=== PATIENT | male | born 1985 | race Caucasian/White ===

== ENCOUNTER 2016-10-02 11:36 | Emergency (ER) | payer SELFPAY ==
[~2016-10-02 11:36] MED LIST: NO MEDICATIONS; VICODIN 5/500 T1 TAB PO
== END 2016-10-02 12:09 | disposition left against medical advice (07) ==
LOC: SED 11:36
DX: Z53.21 Procedure and treatment not carried out due to patient leaving prior to being seen by health care provider (principal)

== ENCOUNTER 2016-10-05 01:41 | Emergency (ER) | payer OTHER ==
--- NOTE | ~2016-10-05 | CR281 ---
[facility]. [facility] A Service of [facility] & [facility] RADIOLOGY TEXT RESULTS PATIENT: TRI AMEZQUITA LOCATION: SED : [birth year] UNIT #: [id number] AGE: [address]: Norman Valencia MD SEX: M ORDER DR: [id number] [place] [address] [id number] E MR#: [id number] Acc #: [id number] NAME: TRI AMEZQUITA : 1985 SEX: M STUDY DATE/TIME: 10/05/2016 2:19 UNIT: SED ROOM: STUDY DESCRIPTION: CR Wrist Min 3 View Lt Attending Physician: Norman Valencia M.D. Ordering Physician: Norman Valencia M.D. Primary Care Physician: Primary Care Physician No MEDICAL IMAGING REPORT This report is preliminary unless electronic signature is present. EXAM Left wrist series INDICATION Left wrist pain after an injury 1 week ago. PROCEDURE 3 views of the left wrist. COMPARISON None FINDINGS No acute fracture or dislocation. IMPRESSION No acute findings. Dictated by... Juan Luis Tillman M.D. THIS IS AN ELECTRONICALLY VERIFIED REPORT Juan Luis Tillman M.D. at 10/05/2016 10:09 PM You TD: 10/05/2016 09:39 JOB #: [id number] MEDICAL IMAGING REPORT Page 1 of 1
--- NOTE | ~2016-10-05 | CR141 ---
[facility]. [facility] A Service of [facility] & [facility] RADIOLOGY TEXT RESULTS PATIENT: TRI AMEZQUITA LOCATION: SED : [birth year] UNIT #: [id number] AGE: [address]: Norman Valencia MD SEX: M ORDER DR: [id number] [place] [address] [id number] E MR#: [id number] Acc #: [id number] NAME: TRI AMEZQUITA : 1985 SEX: M STUDY DATE/TIME: 10/05/2016 2:19 UNIT: SED ROOM: STUDY DESCRIPTION: CR Hand Min 3 Views Lt Attending Physician: Norman Valencia M.D. Ordering Physician: Norman Valencia M.D. Primary Care Physician: Primary Care Physician No MEDICAL IMAGING REPORT This report is preliminary unless electronic signature is present. EXAM Left hand series INDICATION Left hand pain after an injury 1 week ago. PROCEDURE Three views of the left hand. COMPARISON None. FINDINGS No acute fracture or dislocation. IMPRESSION No acute findings. Dictated by... Juan Luis Tillman M.D. THIS IS AN ELECTRONICALLY VERIFIED REPORT Juan Luis Tillman M.D. at 10/05/2016 10:09 PM MARICARMEN/denise TD: 10/05/2016 09:41 JOB #: [id number] MEDICAL IMAGING REPORT Page 1 of 1
== END 2016-10-05 02:59 | disposition home or self-care (01) ==
LOC: SED 01:41
DX: S63.502A Unspecified sprain of left wrist, initial encounter (principal); F17.200 Nicotine dependence, unspecified, uncomplicated; X58.XXXA Exposure to other specified factors, initial encounter; Y92.098 Other place in other non-institutional residence as the place of occurrence of the external cause
CPT/HCPCS: 29125; 73110; 73130; 99283